=== PATIENT | male | born 1945 | race Caucasian/White ===

== ENCOUNTER → 2016-06-11 | Outpatient (CLI) | payer OTHER | DX: R13.10 Dysphagia, unspecified (principal); R11.0 Nausea; R63.4 Abnormal weight loss; M47.812 Spondylosis without myelopathy or radiculopathy, cervical region | CPT/HCPCS: 36415; 70490; 82565; 84520 ==

== ENCOUNTER → 2016-07-02 | Outpatient (CLI) | payer OTHER | LOC: KOH-I 11:30 | DX: R13.10 Dysphagia, unspecified (principal); J43.9 Emphysema, unspecified; J98.4 Other disorders of lung; K22.8 Other specified diseases of esophagus; N20.0 Calculus of kidney | CPT/HCPCS: 71250; 74150 ==

== ENCOUNTER 2020-06-12 12:53 | Emergency (ER) | payer MEDICARE ==
[~2020-06-12] VITALS: Ht 172.7 cm; Wt 75.7 kg
[~2020-06-12 12:53] MED LIST: ABILIFY10 MG PO; KLONOPIN1 MG PO; MIRALAX 119 GR119 GM PO; PROTONIX40 MG PO; REQUIP0.5 MG PO; SEROQUEL50 MG PO; WELLBUTRIN 75 M75 MG PO; XALATAN OP SOL2.5 ML OP; ZOLOFT100 MG PO
[2020-06-12 13:27] LABS: HEMOGLOBIN 14.9 gm/dl (14.0-17.5); RED BLOOD COUNT 5.08 M/UL (4.20-5.50); WHITE BLOOD COUNT 7.4 K/UL (4.5-11.0)
[2020-06-12 13:50] LABS: BUN/CREATININE RATIO 12 (0-10)
[2020-06-15] MEDS ORDERED: MIRALAX17 GM PO (10:01)
[2020-06-15] MEDS ORDERED: BUSPAR 10MG10 MG PO (10:04)
[2020-06-15] MEDS ORDERED: AUSTEDO PO (10:04)
[2020-06-15] MEDS ORDERED: FLORINEF 0.1 M0.1 MG PO (10:05)
[2020-06-15] MEDS ORDERED: NEXIUM40 MG PO (10:05)
[2020-06-15] MEDS ORDERED: LEVSIN-SL0.125 MG SL (10:06)
[2020-06-15] MEDS ORDERED: REMERON15 MG PO (10:07)
[2020-06-15] MEDS ORDERED: MELATONIN5 MG PO (10:08)
[2020-06-15] MEDS ORDERED: SEROQUEL50 MG PO (10:08)
[2020-06-15] MEDS ORDERED: REXULTI PO (10:09)
[2020-06-15] MEDS ORDERED: ROPINIROLE HCL0.5 MG PO (10:10)
[2020-06-15] MEDS ORDERED: SENNA LAX8.6 MG PO (10:11)
[2020-06-15] MEDS ORDERED: FLOMAX 0.4 MG0.4 MG PO (10:11)
[2020-06-15] MEDS ORDERED: VIIBRYD10 MG PO (10:12)
[2020-06-15] MEDS ORDERED: ATIVAN0.5 MG PO ×2 (10:13→11:54)
[2020-06-15] MEDS ORDERED: ALPRAZOLAM1 MG PO (10:14)
[2020-06-15] MEDS ORDERED: BRIMONIDINE TAR15 M1 EYEBOTH (11:03)
[2020-06-16 07:54] LABS: HEMOGLOBIN 14.6 gm/dl (14.0-17.5); RED BLOOD COUNT 5.24 M/UL (4.20-5.50); WHITE BLOOD COUNT 6.8 K/UL (4.5-11.0)
[2020-06-18 08:49] LABS: HEMOGLOBIN 14.4 gm/dl (14.0-17.5); RED BLOOD COUNT 4.98 M/UL (4.20-5.50); WHITE BLOOD COUNT 7.2 K/UL (4.5-11.0)
== END 2020-06-18 13:47 | disposition admitted as inpatient to this hospital (09) ==
LOC: ER1 12:53
PROVIDERS: Emergency Medicine; Family Medicine; Physician Assistant Medical
DX: F32.9 Major depressive disorder, single episode, unspecified (principal); F03.91 Unspecified dementia, unspecified severity, with behavioral disturbance; R45.6 Violent behavior; Z20.822 Contact with and (suspected) exposure to COVID-19
CPT/HCPCS: 71045; 80053; 80307; 81001; 82550; 82553; 83874; 84484; 85025; 85610; 85730; 87086; 93005; 96372; 96374; 96375; 96376; 97162; 99285; J2060; J3486; U0002

== ENCOUNTER 2020-06-18 13:51 | Outpatient (CLI) | payer MEDICARE ==
[~2020-06-18] VITALS: Ht 172.7 cm; Wt 79.4 kg
[~2020-06-18 13:51] MED LIST changes: +ALPRAZOLAM1 MG PO; +ATIVAN0.5 MG PO; +AUSTEDO PO; +BRIMONIDINE TAR15 M1 EYEBOTH; +BUSPAR 10MG10 MG PO; +FLOMAX 0.4 MG0.4 MG PO; +FLORINEF 0.1 M0.1 MG PO; +LEVSIN-SL0.125 MG SL; +MELATONIN5 MG PO; +MIRALAX17 GM PO; +NEXIUM40 MG PO; +REMERON15 MG PO; +REXULTI PO; +ROPINIROLE HCL0.5 MG PO; +SENNA LAX8.6 MG PO; +VIIBRYD10 MG PO
[2020-06-19 06:02] LABS: HEMOGLOBIN 13.2 gm/dl (14.0-17.5); RED BLOOD COUNT 4.6 M/UL (4.20-5.50); WHITE BLOOD COUNT 6.9 K/UL (4.5-11.0)
--- NOTE | 2020-06-19 16:38 | NUR ---
REPORT CALLED TO GREG SCHMIDT AT ACCEPTING FACILITY AT THIS TIME.
--- NOTE | 2020-06-19 17:24 | NUR ---
SPOKE WITH [facility] AT THIS TIME. THEY STATES THAT THEY WILL SEND SOMEONE [place].
== END 2020-06-19 18:28 ==
LOC: GENOP 13:51 → M/S 13:52 → GENOP 06-19 18:28
PROVIDERS: Internal Medicine
DX: Z01.812 Encounter for preprocedural laboratory examination (principal); Z20.822 Contact with and (suspected) exposure to COVID-19; R41.82 Altered mental status, unspecified; G20 Parkinson's disease
CPT/HCPCS: 36415; 80048; 85027; 92610; 97110-GP-CQ; 97162; 97530-GP-CQ; J2060; U0002

== ENCOUNTER → 2021-05-22 | Outpatient (CLI) | payer MEDICARE, OTHER | LOC: KOH-I 05-04 10:30 | DX: N20.0 Calculus of kidney (principal); N28.1 Cyst of kidney, acquired | CPT/HCPCS: 74176 ==

== ENCOUNTER → 2022-01-08 | Outpatient (CLI) | payer MEDICARE, OTHER ==
[2022-01-08 15:38] LABS: HEMOGLOBIN 14.8 gm/dl (14.0-17.5); RED BLOOD COUNT 4.92 M/UL (4.20-5.50); WHITE BLOOD COUNT 7.4 K/UL (4.5-11.0)
== END ==
LOC: LAB 14:36
PROVIDERS: Surgery
DX: K62.5 Hemorrhage of anus and rectum (principal)
CPT/HCPCS: 36415; 71046; 80048; 85025; 93005